=== PATIENT | female | born 1965 | race Caucasian/White ===

== ENCOUNTER 2023-03-04 16:28 | Inpatient (IN) | payer BC ==
[2023-03-04 17:02] LABS: BILIRUBIN,URINE NEGATIVE (NEGATIVE); COLOR,URINE YELLOW (YELLOW); GLUCOSE,URINE NEGATIVE (NEGATIVE); KETONES,URINE 15 mg/dL (NEGATIVE); LEUKOCYTE ESTERASE,URINE TRACE (NEGATIVE); NITRITE,URINE NEGATIVE (NEGATIVE); OCCULT BLOOD,URINE TRACE-LYSED (NEGATIVE); PH,URINE 5.5 (5.0-8.0); PROTEIN,URINE NEGATIVE (NEGATIVE); UROBILINOGEN,URINE 0.2 EU/dL (0.2-1.0)
[2023-03-04] MEDS ORDERED: Prochlorperazine 10 MG/2 ML SDV IVPUSH PRN (17:04)
[2023-03-04] MEDS ORDERED: HYDROmorphone 0.5 MG/0.5 ML Syringe IVPUSH ONE ×2 (17:04→17:35)
[2023-03-04 17:12] LABS: HEMATOCRIT 41.1 % (34.3-46.0); HEMOGLOBIN 14.3 g/dL (11.2-15.5); MEAN CORPUSCULAR HEMOGLOBIN 30.4 pg (31.6-35.5); MEAN CORPUSCULAR HGB CONC 34.8 g/dL (31.6-35.5); MEAN CORPUSCULAR VOLUME 87.3 fL (81.4-99.0); RED BLOOD CELL COUNT 4.71 M/uL (3.77-5.24); WHITE BLOOD CELL COUNT,WBC 9.2 K/uL (3.2-11.0)
[2023-03-04] MEDS ORDERED: Sodium Chloride 0.9% 1,000 ML IV SCH (17:15)
[2023-03-04 17:25] LABS: APPEARANCE,URINE SLIGHTLY CLOUDY (CLEAR); BACTERIA,URINE FEW; EPITHELIAL CELLS,URINE FEW; MUCUS,URINE FEW; RBC,URINE 0-5 (0-5)
[2023-03-04 17:26] LABS: AMORPHOUS SEDIMENT,URINE NOT SEEN
[2023-03-04 17:28] LABS: AMPHETAMINES SCREEN, URINE NEGATIVE (NEGATIVE); BARBITURATE SCREEN,URINE NEGATIVE (NEGATIVE); BENZODIAZEPINES SCREEN,URINE NEGATIVE (NEGATIVE); METHADONE SCREEN, URINE NEGATIVE (NEGATIVE); METHAMPHETAMINES SCREEN, URINE NEGATIVE (NEGATIVE); OXYCODONE SCREEN,URINE NEGATIVE (NEGATIVE); PROPOXYPHENE SCREEN,URINE NEGATIVE (NEGATIVE); THC SCREEN,URINE 50 NG/ML NEGATIVE (NEGATIVE)
[2023-03-04 17:59] LABS: A/G RATIO 1.3 (1.2-2.2); ALANINE AMINOTRANSFERASE,ALT 27 U/L (12-78); ALBUMIN 4.2 g/dL (3.4-5.0); ALKALINE PHOSPHATASE 89 U/L (46-116); ASPARTATE AMNIOTRANSFERASE,AST 20 U/L (15-37); BILIRUBIN TOTAL 0.5 mg/dL (0.2-1.0); BLOOD UREA NITROGEN,BUN 11 mg/dL (7-18); CALCIUM 9.2 mg/dL (8.5-10.1); CARBON DIOXIDE,CO2 21 mmol/L (21-32); CHLORIDE,CL 101 mmol/L (100-108); CREATININE 0.7 mg/dL (0.6-1.0); ESTIMATED GFR 100 mL/min (>60); GLUCOSE RANDOM 106 mg/dL (74-106); POTASSIUM,K 3.6 mmol/L (3.6-5.2); PROTEIN TOTAL,TP 7.4 g/dL (6.4-8.2); SODIUM,NA 137 mmol/L (140-148)
[2023-03-04 18:02] LABS: ANION GAP 18.6 mmol/L (5.0-14.0)
[2023-03-04] MEDS ORDERED: Bisacodyl 5 MG Tab PO PRN (20:56)
[2023-03-04] MEDS ORDERED: Ondansetron 4 MG/2 ML SDV IVPUSH PRN (20:56)
[2023-03-04] MEDS ORDERED: Albuterol 0.083% 2.5 MG/3 ML Neb Soln NEB PRN (20:56)
[2023-03-04] MEDS ORDERED: Docusate Sodium 100 MG Cap PO PRN (20:56)
[2023-03-04] MEDS ORDERED: diphenhydrAMINE 50 MG/ML SDV IVPUSH PRN (20:56)
[2023-03-04] MEDS ORDERED: diphenhydrAMINE 25 MG Cap PO PRN (20:56)
[2023-03-04] MEDS ORDERED: Acetaminophen 1,000 MG in Premix Bag 1 BAG IV PRN (20:56)
[2023-03-04] MEDS ORDERED: Naloxone 0.4 MG/ML SDV IVPUSH PRN ×2 (20:56)
[2023-03-04] MEDS ORDERED: Dextrose 5%-Lactated Ringers 1,000 ML IV SCH (21:00)
[2023-03-04] MEDS ORDERED: Melatonin 3 MG Tab PO PRN (21:54)
[2023-03-04] MEDS: Pantoprazole 40 MG Vial IV SCH (22:04)
[2023-03-04] MEDS: Meropenem 500 MG in Sodium Chloride 0.9% 50 ML IV SCH (22:04)
[2023-03-04] MEDS: HYDROmorphone/Normal Saline 6 MG/30 ML PCA Vial IV PRN (22:12)
[2023-03-05] MEDS: Meropenem 500 MG in Sodium Chloride 0.9% 50 ML IV SCH ×2 (03:11→09:15)
[2023-03-05 06:08] LABS: BASOPHILS ABSOLUTE AUTO 0.05 K/uL (0.00-0.10); BASOPHILS PERCENT AUTO 0.7 % (0.1-1.3); EOSINOPHILS ABSOLUTE AUTO 0.17 K/uL (0.00-0.40); EOSINOPHILS PERCENT AUTO 2.5 % (0.0-5.4); HEMATOCRIT 35.9 % (34.3-46.0); HEMOGLOBIN 12.2 g/dL (11.2-15.5); IMMATURE GRAN ABSOLUTE AUTO 0.03 K/uL (0.00-0.23); IMMATURE GRAN PERCENT AUTO 0.4 % (0.0-0.7); LYMPHOCYTES ABSOLUTE AUTO 1.64 K/uL (0.8-3.3); LYMPHOCYTES PERCENT AUTO 24.3 % (11.4-47.7); MEAN CORPUSCULAR HEMOGLOBIN 30.7 pg (31.6-35.5); MEAN CORPUSCULAR VOLUME 90.2 fL (81.4-99.0); MONOCYTES ABSOLUTE AUTO 0.54 K/uL (0.20-0.90); NEUTROPHILS ABSOLUTE AUTO 4.31 K/uL (1.0-7.6); NEUTROPHILS PERCENT AUTO 64.1 % (40.0-78.1); PLATELET COUNT,PLT 300 K/uL (130-375); RED BLOOD CELL COUNT 3.98 M/uL (3.77-5.24); WHITE BLOOD CELL COUNT,WBC 6.7 K/uL (3.2-11.0)
[2023-03-05 06:18] LABS: ANION GAP 5.3 mmol/L (5.0-14.0); CALCIUM 8.6 mg/dL (8.5-10.1); CREATININE 0.7 mg/dL (0.6-1.0); EST CRCL DRUG DOSING (CG) 65.3 mL/min; MAGNESIUM 1.9 mg/dL (1.8-2.4); POTASSIUM,K 4.6 mmol/L (3.6-5.2)
[2023-03-05] MEDS ORDERED: Ketamine 500 MG/5 ML MDV IV SCH ×3 (07:45→09:00)
[2023-03-05] MEDS ORDERED: Ropivacaine 35 ML, dexAMETHasone 8 MG, EPINEPHrine 0.4 MG, Sodium Chloride 0.9% 42.6 ML NERVRT SCH ×4 (09:00)
[2023-03-05] MEDS ORDERED: Ketamine 14 MG in Sodium Chloride 0.9% 19.86 ML IV SCH (09:00)
[2023-03-05] MEDS ORDERED: Midazolam 1 MG/ML 2 ML SDV ONE (09:09)
[2023-03-05] MEDS ORDERED: fentaNYL 250 MCG/5 ML SDV ONE (09:09)
[2023-03-05] MEDS ORDERED: Rocuronium 50 MG/5 ML Vial ONE ×2 (09:10→10:18)
[2023-03-05] MEDS ORDERED: Propofol 200 MG/20 ML SDV ONE (09:10)
[2023-03-05] MEDS ORDERED: Glycopyrrolate 0.2 MG/ML 5 ML MDV ONE (09:10)
[2023-03-05] MEDS ORDERED: Dexamethasone 4 MG/ML SDV ONE (09:10)
[2023-03-05] MEDS ORDERED: Ondansetron 4 MG/2 ML SDV ONE (09:10)
[2023-03-05] MEDS ORDERED: Phenylephrine 1% 10 MG/ML SDV ONE (09:42)
[2023-03-05] MEDS ORDERED: Sodium Chloride 0.9% 10 ML ONE (09:43)
[2023-03-05] MEDS ORDERED: Neostigmine Methylsulfate 1 MG/ML 5 ML Syringe ONE (10:46)
[2023-03-05] MEDS ORDERED: Sugammadex Sodium 200 MG/2 ML VIAL ONE (11:02)
[2023-03-05] MEDS ORDERED: fentaNYL 100 MCG/2 ML SDV ONE (11:12)
[2023-03-05] MEDS ORDERED: Acetaminophen 1,000 MG in Premix Bag 1 BAG IV ONE (12:45)
[2023-03-05] MEDS ORDERED: Cyclobenzaprine 10 MG Tab PO PRN (13:33)
[2023-03-05] MEDS ORDERED: hydrOXYzine HCl 50 MG/ML SDV IM PRN (14:00)
[2023-03-05] MEDS ORDERED: Naloxone 0.4 MG/ML SDV IV PRN (14:00)
[2023-03-05] MEDS ORDERED: Acetaminophen 500 MG Tab PO PRN (14:00)
[2023-03-05] MEDS ORDERED: Labetalol 20 MG/4 ML Syringe IVPUSH PRN (14:00)
[2023-03-05] MEDS ORDERED: diphenhydrAMINE 50 MG/ML SDV IVPUSH PRN (14:00)
[2023-03-05] MEDS ORDERED: Metoclopramide 10 MG/2 ML SDV IVPUSH PRN (14:00)
[2023-03-05] MEDS: Dextrose 5%-Lactated Ringers 1,000 ML IV SCH ×2 (14:22→23:35)
[2023-03-05] MEDS: Pantoprazole 40 MG Vial IV SCH (14:47)
[2023-03-05] MEDS ORDERED: MVI, Adult with Vitamin K 10 ML, Thiamine 200 MG, Zinc/Copper/Manganese/Selenium 1 ML i... IV SCH ×4 (16:00)
[2023-03-05] MEDS: Losartan 50 MG Tab PO SCH (16:37)
[2023-03-05] MEDS: cefOXitin 2 GM in Sodium Chloride 0.9% 50 ML IV SCH ×2 (16:37→22:07)
[2023-03-05] MEDS: Ondansetron 4 MG/2 ML SDV IV PRN (16:50)
[2023-03-05] MEDS: Acetaminophen 500 MG Tab PO SCH (20:24)
[2023-03-05] MEDS: Heparin Sodium 5,000 Units/ML Vial SUBCUT SCH (20:24)
[2023-03-06] MEDS: HYDROmorphone/Normal Saline 6 MG/30 ML PCA Vial IV PRN (00:50)
[2023-03-06] MEDS: Acetaminophen 500 MG Tab PO SCH ×3 (03:29→20:18)
[2023-03-06] MEDS: cefOXitin 2 GM in Sodium Chloride 0.9% 50 ML IV SCH ×4 (03:30→23:01)
[2023-03-06] MEDS ORDERED: Iopamidol 612 MG/ML 30 ML SDV PO STA (03:32)
[2023-03-06] MEDS: Ondansetron 4 MG/2 ML SDV IV PRN (04:13)
[2023-03-06 05:15] LABS: BASOPHILS PERCENT AUTO 0.1 % (0.1-1.3); EOSINOPHILS PERCENT AUTO 0.1 % (0.0-5.4); HEMOGLOBIN 12.1 g/dL (11.2-15.5); IMMATURE GRAN ABSOLUTE AUTO 0.07 K/uL (0.00-0.23); IMMATURE GRAN PERCENT AUTO 0.5 % (0.0-0.7); LYMPHOCYTES ABSOLUTE AUTO 0.77 K/uL (0.8-3.3); LYMPHOCYTES PERCENT AUTO 5.7 % (11.4-47.7); MEAN CORPUSCULAR HEMOGLOBIN 30.3 pg (31.6-35.5); MEAN CORPUSCULAR HGB CONC 33.6 g/dL (31.6-35.5); MONOCYTES ABSOLUTE AUTO 0.87 K/uL (0.20-0.90); MONOCYTES PERCENT AUTO 6.5 % (3.3-12.6); NEUTROPHILS ABSOLUTE AUTO 11.73 K/uL (1.0-7.6); NEUTROPHILS PERCENT AUTO 87.1 % (40.0-78.1); PLATELET COUNT,PLT 200 K/uL (130-375); WHITE BLOOD CELL COUNT,WBC 13.5 K/uL (3.2-11.0)
[2023-03-06 05:21] LABS: BASOPHILS ABSOLUTE AUTO 0.02 K/uL (0.00-0.10); EOSINOPHILS ABSOLUTE AUTO 0.01 K/uL (0.00-0.40)
[2023-03-06 05:33] LABS: A/G RATIO 1.1 (1.2-2.2); ALANINE AMINOTRANSFERASE,ALT 38 U/L (12-78); ALBUMIN 3.2 g/dL (3.4-5.0); ALKALINE PHOSPHATASE 77 U/L (46-116); ASPARTATE AMNIOTRANSFERASE,AST 25 U/L (15-37); BILIRUBIN TOTAL 0.4 mg/dL (0.2-1.0); BLOOD UREA NITROGEN,BUN 4 mg/dL (7-18); CALCIUM 8.5 mg/dL (8.5-10.1); CARBON DIOXIDE,CO2 27 mmol/L (21-32); CHLORIDE,CL 103 mmol/L (100-108); EST CRCL DRUG DOSING (CG) 45.71 mL/min; ESTIMATED GFR 65 mL/min (>60); GLUCOSE RANDOM 139 mg/dL (74-106); MAGNESIUM 1.6 mg/dL (1.8-2.4); PHOSPHORUS 2.6 mg/dL (2.5-4.9); POTASSIUM,K 3.5 mmol/L (3.6-5.2); PROTEIN TOTAL,TP 6.2 g/dL (6.4-8.2); SODIUM,NA 138 mmol/L (140-148)
[2023-03-06 05:40] LABS: ANION GAP 11.5 mmol/L (5.0-14.0)
[2023-03-06] MEDS: Dextrose 5%-Lactated Ringers 1,000 ML IV SCH (06:06)
[2023-03-06] MEDS ORDERED: Potassium Phosphates 3 mMole/ML 15 ML SDV IV ONE (07:30)
[2023-03-06] MEDS ORDERED: Dextrose 5%-Lactated Ringers 1,000 ML IV SCH (07:30)
[2023-03-06] MEDS ORDERED: Pantoprazole 40 MG Vial IVPUSH SCH (09:00)
[2023-03-06] MEDS: Pantoprazole 40 MG Tab.CR PO SCH (09:04)
[2023-03-06] MEDS: Celecoxib 200 MG Cap PO SCH ×2 (09:04→20:19)
[2023-03-06] MEDS: Losartan 50 MG Tab PO SCH (09:05)
[2023-03-06] MEDS: Heparin Sodium 5,000 Units/ML Vial SUBCUT SCH ×2 (09:07→20:19)
[2023-03-06] MEDS: Potassium Phosphates 15 MMOLE in Sodium Chloride 0.9% 250 ML IV SCH ×2 (11:18→14:23)
[2023-03-06] MEDS: Magnesium Sulfate/Water 2 GM/50 ML BAG IV SCH ×3 (11:18→23:36)
[2023-03-06] MEDS ORDERED: MVI, Adult with Vitamin K 10 ML, Thiamine 200 MG, Zinc/Copper/Manganese/Selenium 1 ML i... IV SCH ×4 (16:00)
[2023-03-06] MEDS: HYDROmorphone 2 MG Tab PO PRN ×2 (16:01→20:18)
[2023-03-07] MEDS: Acetaminophen 500 MG Tab PO SCH (04:08)
[2023-03-07] MEDS: Magnesium Sulfate/Water 2 GM/50 ML BAG IV SCH (04:09)
[2023-03-07] MEDS: HYDROmorphone 2 MG Tab PO PRN ×2 (04:19→11:10)
[2023-03-07 04:32] LABS: HEMOGLOBIN 12.1 g/dL (11.2-15.5); MEAN CORPUSCULAR HEMOGLOBIN 30.3 pg (31.6-35.5); MEAN CORPUSCULAR HGB CONC 33.6 g/dL (31.6-35.5); WHITE BLOOD CELL COUNT,WBC 15.7 K/uL (3.2-11.0)
[2023-03-07 04:50] LABS: A/G RATIO 0.9 (1.2-2.2); ALANINE AMINOTRANSFERASE,ALT 70 U/L (12-78); ALBUMIN 2.9 g/dL (3.4-5.0); ALKALINE PHOSPHATASE 101 U/L (46-116); ASPARTATE AMNIOTRANSFERASE,AST 46 U/L (15-37); BILIRUBIN TOTAL 0.9 mg/dL (0.2-1.0); BLOOD UREA NITROGEN,BUN 6 mg/dL (7-18); CALCIUM 8.2 mg/dL (8.5-10.1); CARBON DIOXIDE,CO2 27 mmol/L (21-32); CHLORIDE,CL 103 mmol/L (100-108); CREATININE 0.7 mg/dL (0.6-1.0); EST CRCL DRUG DOSING (CG) 65.37 mL/min; ESTIMATED GFR 100 mL/min (>60); GLUCOSE RANDOM 107 mg/dL (74-106); PHOSPHORUS 3.4 mg/dL (2.5-4.9); POTASSIUM,K 4.1 mmol/L (3.6-5.2); SODIUM,NA 138 mmol/L (140-148)
[2023-03-07 05:12] LABS: ANION GAP 12.1 mmol/L (5.0-14.0)
[2023-03-07] MEDS: Heparin Sodium 5,000 Units/ML Vial SUBCUT SCH (07:21)
[2023-03-07] MEDS: Pantoprazole 40 MG Tab.CR PO SCH (07:21)
[2023-03-07] MEDS ORDERED: Cyanocobalamin (Vitamin B12) 1,000 MCG/ML SDV IM ONE (09:00)
[2023-03-07] MEDS: Celecoxib 200 MG Cap PO SCH (09:08)
[2023-03-07] MEDS: Losartan 50 MG Tab PO SCH (09:08)
[2023-03-07] MEDS ORDERED: Magnesium Hydroxide 400 MG/5 ML Susp 30 ML Cup PO ONE (11:28)
== END 2023-03-07 11:55 | disposition home or self-care (01) | DRG 220 ==
LOC: JP.ED 16:28 → UNDOADMIN 19:21 → JP.MS 19:21
PROVIDERS: ADMIT Hospitalist; ATTEND Surgery
PROC: 0BUT4JZ Supplement Diaphragm with Synthetic Substitute, Percutaneous Endoscopic Approach (ICD-10-PCS; principal; 2023-03-05)
PROC: 0DB64ZZ Excision of Stomach, Percutaneous Endoscopic Approach (ICD-10-PCS; 2023-03-05)
PROC: 0DV44ZZ Restriction of Esophagogastric Junction, Percutaneous Endoscopic Approach (ICD-10-PCS; 2023-03-05)
PROC: 0JB63ZZ Excision of Chest Subcutaneous Tissue and Fascia, Percutaneous Approach (ICD-10-PCS; 2023-03-05)
PROC: 0DH64UZ Insertion of Feeding Device into Stomach, Percutaneous Endoscopic Approach (ICD-10-PCS; 2023-03-05)
PROC: 0DX64Z5 Transfer Stomach to Esophagus, Percutaneous Endoscopic Approach (ICD-10-PCS; 2023-03-05)
DX: K44.0 Diaphragmatic hernia with obstruction, without gangrene (principal); K31.1 Adult hypertrophic pyloric stenosis; D17.1 Benign lipomatous neoplasm of skin and subcutaneous tissue of trunk; K21.9 Gastro-esophageal reflux disease without esophagitis; I10 Essential (primary) hypertension; Z88.5 Allergy status to narcotic agent; Z88.2 Allergy status to sulfonamides; Z87.442 Personal history of urinary calculi
CPT/HCPCS: 36415; 74019; 74019-26; 74176; 74240; 74240-26; 80048; 80053; 80305-QW; 81001; 83605; 83690; 83735; 84100; 84145; 85025; 85027; 88302; 88305; 96361; 96374; 96375; 96376; 99222; 99285-25; A9270-GY; C1713; C1781; C9113; J0131; J0171; J0456; J0694; J0780; J1100; J1170; J1644; J2185; J2250; J2370; J2405; J2704; J2710; J2795; J3010; J3411; J3420; J3475; J3490; J7030; J7050; J7121; Q9967; U0002

== ENCOUNTER 2023-06-15 07:19 | Day surgery (SDC) | payer BC ==
[2023-06-15] MEDS ORDERED: Dextrose 5%-Lactated Ringers 1,000 ML IV SCH (08:15)
[2023-06-15] MEDS ORDERED: Propofol 200 MG/20 ML SDV ONE (08:28)
[2023-06-15] MEDS ORDERED: fentaNYL 50 MCG/ML SDV ONE (08:28)
[2023-06-15] MEDS ORDERED: Midazolam 1 MG/ML 2 ML SDV ONE (08:28)
[2023-06-15] MEDS ORDERED: Glycopyrrolate 0.2 MG/ML 2 ML SDV IVPUSH ONE (08:45)
[2023-06-15] MEDS ORDERED: Dexamethasone 4 MG/ML SDV ONE (09:45)
== END 2023-06-15 11:45 | disposition home or self-care (01) ==
LOC: JP.SDS 07:19
PROVIDERS: ATTEND Surgery
DX: K22.2 Esophageal obstruction (principal); Z98.890 Other specified postprocedural states; Z87.19 Personal history of other diseases of the digestive system; Z88.2 Allergy status to sulfonamides; Z88.5 Allergy status to narcotic agent
CPT/HCPCS: 43248; J1100; J2250; J2704; J3010; J3490; J7121

== ENCOUNTER 2023-06-22 08:29 | Day surgery (SDC) | payer BC ==
[2023-06-22] MEDS ORDERED: fentaNYL 50 MCG/ML SDV ONE (09:09)
[2023-06-22] MEDS ORDERED: Propofol 200 MG/20 ML SDV ONE (09:09)
[2023-06-22] MEDS ORDERED: Midazolam 1 MG/ML 2 ML SDV ONE (09:09)
[2023-06-22] MEDS ORDERED: Dextrose 5%-Lactated Ringers 1,000 ML IV SCH (09:30)
[2023-06-22] MEDS ORDERED: Dexamethasone 4 MG/ML SDV ONE (11:07)
[2023-06-22] MEDS ORDERED: Ondansetron 4 MG/2 ML SDV ONE (11:07)
== END 2023-06-22 12:11 | disposition home or self-care (01) ==
LOC: JP.SDS 08:29 → MERGE 11:15 → EDBD 11:15 → JP.SDS 12:11
PROVIDERS: ATTEND Surgery
DX: K91.89 Other postprocedural complications and disorders of digestive system (principal); K22.2 Esophageal obstruction; Z88.5 Allergy status to narcotic agent; Z88.2 Allergy status to sulfonamides
CPT/HCPCS: 43248; J1100; J2250; J2405; J2704; J3010; J7121